=== PATIENT | male | born 1940 | race Caucasian/White ===

== ENCOUNTER 2020-05-21 08:56 | Emergency (ER) | payer MEDICARE, BC, SELFPAY ==
--- NOTE | 2020-05-21 09:07 | ED.SKABFB ---
HPI - Skin/Abscess/Foreign Bdy General Chief complaint: Skin/Abscess/Foreign Body Stated complaint: Sores on back Time Seen by Provider: 05/21/20 09:10 Source: patient and RN notes reviewed History of Present Illness HPI narrative: Patient is an 80-year-old male who presents the urgent care with complaints of a sore on the back . Patient states that it has been there for approximately 1 month and he has had one in the past in which he saw plastic surgeon for. Patient states that he feels that it is getting larger but he is unable to see the wound. States that it does bleed and drain at night. Denies of any fever, chills, nausea, vomiting. Patient states he is used cortisone cream to the area. No other acute complaints no acute distress noted. Patient aware of the plan of care. Some parts of this dictation were generated by voice recognition software and may contain typographical and/or grammatical inaccuracies. Related Data Home Medications Medication Instructions Recorded Confirmed alirocumab [Praluent Pen] mg SUBCUT 05/21/20 anastrozole mg 05/21/20 carvedilol 05/21/20 finasteride mg 05/21/20 icosapent ethyl [Vascepa] g PO 05/21/20 lisinopril 05/21/20 spironolactone 05/21/20 testosterone 05/21/20 Allergies Allergy/AdvReac Type Severity Reaction Status Date / Time erythromycin base Allergy Unknown Verified 02/25/17 08:35 lovastatin Allergy Unknown Verified 01/31/18 08:38 Aypsvop-Ite-Ism Reductase Allergy Unknown MUSCLE PAIN Verified 05/08/19 18:21 Inhibitor Review of Systems Review of Systems: Narrative: CONSTITUTIONAL: Denies fever, chills, or sweats. EYES: Denies visual changes, redness, or discharge. ENT: Denies rhinorrhea, congestion, sore throat, or otalgia. CARDIOVASCULAR: Denies chest pain, palpitations, or edema. RESPIRATORY: Denies cough or dyspnea. GASTROINTESTINAL: Denies abdominal pain, nausea, vomiting, or diarrhea. GENITOURINARY: Denies dysuria or hematuria. SKIN: Reports of a sore on the upper back MUSCULOSKELETAL: Denies back pain, joint pain, or myalgia. NEUROLOGIC: Denies headache, numbness, or weakness. All other systems reviewed are negative, except as documented in HPI. PMFSH Family History Family History (Updated 01/31/18 @ 08:41 by DOCTOR UNKNOWN) Father Patient's father is Mother Family history of Alzheimer's disease Social History Social History Smoking status: Never smoker Alcohol intake: current Comments At the time of my signature, I reviewed and agree with the nursing past medical, surgical, social, and family history. There is no relevant family history pertinent to the patient complaint. Exam Narrative: Exam Narrative: GENERAL: This is a well-nourished, well-developed patient, in no apparent distress. HEAD: normocephalic, atraumatic. EYES: PERRL. Sclera clear/white. Vision is grossly intact. EARS: External ears normal NOSE: External nose normal with no obvious nasal discharge, nares without redness, no rhinorrhea. THROAT: Mucous membranes moist NECK: Neck supple SKIN: 1 x 1 cm open stage I wound to the right upper back/right shoulder blade with scant yellow drainage and very mild surrounding erythema. Warm, intact with no suspicious lesions or rash, good texture and turgor. NEURO: awake, alert, and oriented to person, place and time. There were no obvious focal neurologic abnormalities. EXTREMITIES: No clubbing, cyanosis, or edema. Course Vital Signs Vital signs: Vital Signs Temperature 97.2 F L 05/21/20 09:09 Pulse Rate 65 05/21/20 09:09 Respiratory Rate 20 05/21/20 09:09 Blood Pressure 166/97 H 05/21/20 09:09 Pulse Oximetry 97 05/21/20 09:09 Temperature 97.2 F L 05/21/20 09:19 Pulse Rate 65 05/21/20 09:19 Respiratory Rate 20 05/21/20 09:19 Blood Pressure 166/97 H 05/21/20 09:19 Pulse Oximetry 97 05/21/20 09:19 Reviewed-patient is informed that they may have pre-hypertension or hy
[2020-05-21 09:09] VITALS: BP 166/97; PULSE 65; RESP 20; TEMP 36.2; O2SAT 97
[2020-05-21 09:19] VITALS: BP 166/97; PULSE 65; RESP 20; TEMP 36.2; O2SAT 97
== END 2020-05-21 09:32 | disposition home or self-care (01) ==
PROVIDERS: Emergency Provider Nurse Practitioner Family
DX: S21.201A Unspecified open wound of right back wall of thorax without penetration into thoracic cavity, initial encounter (principal); X58.XXXA Exposure to other specified factors, initial encounter; I10 Essential (primary) hypertension
CPT/HCPCS: 99213; G0463

== ENCOUNTER 2021-12-17 11:45 | Outpatient (CLI) | payer MEDICARE, BC, SELFPAY ==
[2021-12-17 12:25] LABS: Potassium 5.2 mmol/L (3.4-5.0)
== END 2021-12-17 11:46 | disposition home or self-care (01) ==
LOC: ANHLAB 11:49
PROVIDERS: Visit Provider Internal Medicine Cardiovascular Disease
DX: E87.5 Hyperkalemia (principal)
CPT/HCPCS: 36415; 84132

== ENCOUNTER 2022-06-05 17:08 | Emergency (ER) | payer MEDICARE, BC, SELFPAY ==
--- NOTE | ~2022-06-05 | XR_ITS ---
EXAMINATION: XR chest 2V Exam Date/Time: 06/05/2022 17:33 ANESTHESIOLOGY PHYSICIAN ASSISTANT HISTORY: COUGH, CONGESTION Comparison: None available. RESULT: Lines, tubes, and devices: Coronary artery calcification and/or stents. Lungs and pleura: Senescent change. Cardiomediastinal silhouette: Stable aortic ectasia. Other: No acute osseous or upper abdominal finding. IMPRESSION: No acute cardiopulmonary process. Reviewed, dictated and finalized at location K. THESIOLOGY PHYSICIAN ASSISTANT
--- NOTE | 2022-06-05 17:15 | ED.URI ---
HPI - URI/Sore Throat General Chief Complaint: Upper Respiratory Infection Stated Complaint: cold/flu Time Seen by Provider: 06/05/22 17:15 Source: patient and family Mode of arrival: ambulatory Limitations: no limitations History of Present Illness HPI Narrative: Mr. Vang is a 82-year-old male patient presenting to the clinic today with complaints of cold/flu symptoms. He reports he has had coughing and congestion for few days. He denies any known fever or chills. History of pneumonia in the past and his is concerned that he may have pneumonia MD elicited complaint: sore throat and nasal congestion Related Data Home Medications Medication Instructions Recorded Confirmed alirocumab 150 mg/mL subcutaneous 150 mg subcut DIRECTED 05/21/20 06/05/22 pen injector (Praluent Pen) anastrozole 1 mg tablet 1 mg PO DIRECTED 05/21/20 06/05/22 carvedilol 12.5 mg tablet 12.5 mg PO DAILY 05/21/20 06/05/22 finasteride 5 mg tablet 5 mg PO DAILY 05/21/20 06/05/22 icosapent ethyl 1 gram capsule 1 g PO DAILY 05/21/20 06/05/22 (Vascepa) lisinopril 20 mg tablet 20 mg PO DAILY 05/21/20 06/05/22 spironolactone 25 mg tablet 25 mg PO DAILY 05/21/20 06/05/22 famotidine 40 mg tablet 40 mg PO DAILY 06/05/22 06/05/22 quetiapine 50 mg tablet 50 mg PO DAILY 06/05/22 06/05/22 silodosin 8 mg capsule 8 mg PO DAILY 06/05/22 06/05/22 Allergies Allergy/AdvReac Type Severity Reaction Status Date / Time erythromycin base Allergy Unknown Rash Verified 06/05/22 17:31 lovastatin Allergy Unknown Muscle Verified 06/05/22 17:31 Spasms Ribajgs-NKQ-YpP Reductase Allergy Unknown MUSCLE PAIN Verified 05/08/19 18:21 Inhibitor [Wmqdvwe-Lkg-Tkz Reductase Inhibitor] Review of Systems Review of Systems: Pertinent positives per HPI. Patient denies any fever, chills, rash, headache, visual changes, dizziness, cough, shortness of breath, chest pain, palpitations, nausea, vomiting, diarrhea, constipation, abdominal pain, or any urinary issues. [facility] Family History Family History Father Patient's father is Mother Family history of Alzheimer's disease Social History Social History Smoking status: Never smoker Alcohol intake: current Comments At the time of my signature, I reviewed and agree with the nursing past medical, surgical, social, and family history. There is no relevant family history pertinent to the patient complaint. Exam Narrative: General: Well-developed, well nourished, in no apparent distress Head: Normocephalic, atraumatic Eyes: Pupils equally round and reactive to light bilaterally, EOM intact, sclera and conjunctive clear, no discharge, lids normal Ears: TMs intact and clear, ear canals clear, no drainage, grossly hearing normal. Nose: Nares patent, no discharge, no inflammation, no sinus tenderness. Mouth: Oral pharynx without lesions or masses, good dentition, MMM. Neck: Supple, trachea midline, no enlargement of anterior or posterior cervical nodes, no thyroid masses or goiter palpable. Cardio: Regular rate and rhythm, s1 and s2 normal, no murmur appreciated. Resp: Clear to auscultation bilaterally, no rhonchi, rales, wheezing or rubs Course Course Emergency Course: Portions of this record may have been created with voice recognition software. Level of Care: Express Care Visit Vital Signs Vital signs: Vital Signs Temperature 37.0 C 06/05/22 17:19 Pulse Rate 78 06/05/22 17:19 Respiratory Rate 16 06/05/22 17:19 Blood Pressure 120/81 06/05/22 17:19 Pulse Oximetry 96 06/05/22 17:19 Temperature 37.0 C 06/05/22 17:19 Pulse Rate 78 06/05/22 17:19 Respiratory Rate 16 06/05/22 17:19 Blood Pressure 120/81 06/05/22 17:19 Pulse Oximetry 96 06/05/22 17:19 Vital signs reviewed MDM - URI/Sore Throat MDM Narrative
[2022-06-05 17:19] VITALS: BP 120/81; PULSE 78; RESP 16; TEMP 37; O2SAT 96
== END 2022-06-05 18:01 | disposition home or self-care (01) ==
PROVIDERS: Emergency Provider Nurse Practitioner Family
DX: J10.1 Influenza due to other identified influenza virus with other respiratory manifestations (principal); Z20.822 Contact with and (suspected) exposure to COVID-19
CPT/HCPCS: 71046; 87426; 87804; 99213; C9803; G0463

== ENCOUNTER → 2022-09-07 10:27 | Outpatient (CLI) | payer MEDICARE, BC, SELFPAY ==
--- NOTE | ~2022-09-07 | MR_ITS ---
MRI of the right foot CLINICAL HISTORY: Chronic ulcer TECHNIQUE: Axial T1-weighted, T2 fat sat, and T1 fat-sat images, sagittal T1 weighted and STIR images , and coronal T1-weighted and T2 fat-sat images were performed. Following intravenous administration of 15 cc MultiHance gadolinium, T1-weighted fat-sat imaging was performed in the axial, coronal, and sagittal planes. FINDINGS: No evidence for fracture, suspicious bone marrow edema, or ostial myelitis. There are mild degenerative changes at the TMT joints, with focal areas of subchondral cystic change present. Visual ized joint spaces are preserved. Visualized collateral ligament appear intact. No significant joint e ffusion identified. No evidence for intermetatarsal bursitis or Chilel's neuroma. There is a soft tissue ulcer at the mago ntar aspect of the foot at the level of the second metatarsal head. No abscess evident. There is mild nonspecific edematous change of the intrinsic musculature of the foot. There is mild dorsal subcutan eous soft tissue edema. No abscess evident. There is enhancing soft tissue the plantar muscular foot about the second digit and second MTP joint, compatible soft tissue infection. IMPRESSION: No evidence for osteomyelitis or abscess. Soft tissue ulcer at the plantar aspect of the second metatarsal head region, with probable soft tiss ue infection involving the plantar soft tissues of the second digit and second MTP joint region. Minimal degenerative change at the TMT joints. Reviewed, dictated and finalized at [facility]. L ROOM ATTENDANT IMPRESSION: No evidence for osteomyelitis or abscess. Soft tissue ulcer at the plantar aspect of the second metatarsal head region, w ith probable soft tissue infection involving the plantar soft tissues of the se cond digit and second MTP joint region. Minimal degenerative change at the TMT joints.
== END ==
PROVIDERS: Visit Provider Podiatrist Foot & Ankle Surgery
DX: L97.512 Non-pressure chronic ulcer of other part of right foot with fat layer exposed (principal)
CPT/HCPCS: 73720; A9577

== ENCOUNTER 2022-09-25 19:49 | Emergency (ER) | payer MEDICARE, BC, SELFPAY ==
--- NOTE | ~2022-09-25 | XR_ITS ---
EXAMINATION: XR chest 2V Exam Date/Time: 09/25/2022 20:03 CDT HISTORY: CP, SOB Comparison: 06/05/2022. RESULT: Lines, tubes, and devices: Coronary stents/calcification. Vascular stent in the proximal abdominal a mica. Lungs and pleura: Senescent changes. Calcified left lower lung granulomas.. Cardiomediastinal silhouette: Stable. Other: No acute osseous or upper abdominal finding. IMPRESSION: No acute cardiopulmonary process. Reviewed, dictated and finalized at location K.
[2022-09-25 19:52] VITALS: BP 178/111; PULSE 71; RESP 16; TEMP 36.3; O2SAT 96
--- NOTE | 2022-09-25 19:52 | ECG_ITS ---
Measurements Intervals [place] Rate: 73 P: RI: 0 QRS: -57 QRSD: 101 T: 84 QT: 409 QTc: 452 Interpretive Statements ATRIAL FLUTTER/TACHYCARDIA WITH NORMAL VENTRICULAR RESPONSE LEFT AXIS DEVIATION VOLTAGE CRITERIA FOR LVH POOR R WAVE PROGRESSION, ANTERIOR LEADS INFERIOR INFARCT, AGE INDETERMINATE BORDERLINE ST-T WAVE ABNORMALITY- HIGH LATERAL LEADS ABNORMAL ECG BASELINE ARTIFACT- I, III, AVR, AVL NO PREVIOUS ECG AVAILABLE FOR COMPARISON Electronically Signed On 09-25-2022 21:47:03 CDT by Kaleb Virgen D.O.
[2022-09-25 20:11] LABS: Basophils Absolute Auto 0.1 K/mm3 (0.0-0.1); Basophils Percent Auto 1.6 % (0.2-1.2); Eosinophils Absolute Auto 0.2 K/mm3 (0-0.3); Eosinophils Percent Auto 2.6 % (0-4.4); Hematocrit 44.8 % (42.0-52.0); Hemoglobin 15.4 g/dL (14.0-18.0); Immature Granulocyte Absolute 0.03 K/mm3 (0.00-0.031); Immature Granulocyte Percent A 0.4 % (0-0.5); Lymphocytes Absolute Auto 1.71 K/mm3 (0.9-3.2); Lymphocytes Percent Auto 23.4 % (18.3-44.2); Mean Corpuscular HGB Conc 34.4 g/dl (32-36); Mean Corpuscular Volume 87.3 fl (80-100); Mean Platelet Volume 9.3 fl (7.4-10.4); Monocytes Absolute Auto 0.9 K/mm3 (0.1-0.6); Monocytes Percent Auto 11.9 % (2.6-8.5); Neutrophils Absolute Auto 4.4 K/mm3 (1.3-6.7); Neutrophils Percent Auto 60.1 % (45.5-73.1); Platelet Count Result 249 k/mm3 (150-375); Red Blood Count 5.13 M/mm3 (4.6-6.20); Red Cell Distribution Width 13.3 % (11.5-14.5); White Blood Count 7.3 K/mm3 (4.5-10.0)
[2022-09-25 20:23] LABS: Alanine Aminotransferase 26 U/L (6-50); Albumin Level 4.6 g/dL (3.5-5.1); Alkaline Phosphatase 73 U/L (38-126); Anion Gap 5 mmol/L (8-16); Aspartate Amino Transferase 31 U/L (17-59); Bilirubin,Total 0.7 mg/dL (0.2-1.3); Blood Urea Nitrogen 21 mg/dL (9-20); Calcium 9.8 mg/dL (8.4-10.2); Carbon Dioxide 28 mmol/L (22-30); Chloride 108 mmol/L (98-107); Estimated Glomerular Filt Rate > 60; Glucose 102 mg/dL (65-110); Lipase 49 U/L (23-300); Potassium 4.3 mmol/L (3.4-5.0); Sodium 141 mmol/L (137-145)
[2022-09-25 20:31] VITALS: O2SAT 98
[2022-09-25 20:46] VITALS: BP 174/104; PULSE 73; RESP 23; O2SAT 97
[2022-09-25 20:55] LABS: Troponin I < 0.012 ng/mL (0.000-0.034)
[2022-09-25 20:57] LABS: INR 1.3; Prothrombin Time 15.4 Seconds (11.1-14.7)
[2022-09-25] MEDS: FAMOTIDINE 20 MG/2 ML VIAL IV PUSH (22:37)
[2022-09-25] MEDS: MAG HYDROX/AL HYDROX/SIMETH 30 ML UDC PO (22:37)
[2022-09-25 23:04] LABS: Troponin I < 0.012 ng/mL (0.000-0.034)
--- NOTE | 2022-09-25 23:47 | ED.GENADULT ---
HPI - General Adult General Chief complaint: Chest Pain Stated complaint: chest pain Time Seen by Provider: 09/25/22 20:43 History of Present Illness HPI narrative: Is a 82-year-old male presenting to ED with chief complaint of high blood pressure. The patient noticed earlier today that his blood pressure was as high as 180/100. Throughout the day around 5:00 p.m. he started to have a stinging pain his lower chest after eating. It is nonradiating 4-5 intensity and comes and goes. Lasts about 10 minutes each time and resolves on its own. This happened 5 times since then. He has never been variance pain like this before there are no exacerbating alleviating factors. Is not associated with nausea vomiting diaphoresis or exertion, shortness of breath or fever and chills. Came to the hospital because after he had the chest pain they checked his blood pressure and then they brought him to the ED for evaluation. 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. Related Data Home Medications Medication Instructions Recorded Confirmed alirocumab 150 mg/mL subcutaneous 150 mg subcut DIRECTED 05/21/20 06/05/22 pen injector (Praluent Pen) anastrozole 1 mg tablet 1 mg PO DIRECTED 05/21/20 06/05/22 carvedilol 12.5 mg tablet 12.5 mg PO DAILY 05/21/20 06/05/22 finasteride 5 mg tablet 5 mg PO DAILY 05/21/20 06/05/22 icosapent ethyl 1 gram capsule 1 g PO DAILY 05/21/20 06/05/22 (Vascepa) lisinopril 20 mg tablet 20 mg PO DAILY 05/21/20 06/05/22 spironolactone 25 mg tablet 25 mg PO DAILY 05/21/20 06/05/22 famotidine 40 mg tablet 40 mg PO DAILY 06/05/22 06/05/22 quetiapine 50 mg tablet 50 mg PO DAILY 06/05/22 06/05/22 silodosin 8 mg capsule 8 mg PO DAILY 06/05/22 06/05/22 Allergies Allergy/AdvReac Type Severity Reaction Status Date / Time erythromycin base Allergy Unknown Rash Verified 09/25/22 19:56 lovastatin Allergy Unknown Muscle Verified 09/25/22 19:56 Spasms [place]-IVD-OsH Reductase Allergy Unknown MUSCLE PAIN Verified 09/25/22 19:56 Inhibitor [Hyaztnz-Kue-Oil Reductase Inhibitor] [facility], [facility] Family History Family History Father Patient's father is Mother Family history of Alzheimer's disease Social History Social History Smoking status: Never smoker Alcohol intake: current Exam Narrative: APPEARANCE: No apparent distress. Head: atraumatic. EYES: EOMI, NOSE: Atraumatic NECK: Trachea midline RESPIRATORY: No increased rate of breathing , clear to auscultation CARDIOVASCULAR: RRR, no peripheral edema, equal pulses in all extremities ABDOMINAL: Non-distended soft nontender no guarding or rebound MUSCULOSKELETAl: No obvious deformities NEURO: Alert. cranial nerves intact, Moving 4/4 extremities SKIN:: Warm, dry. Normal color PSYCHIATRIC: Normal affect Course Vital Signs Vital signs: Vital Signs Temperature 97.4 F L 09/25/22 19:52 Pulse Rate 71 09/25/22 19:52 Respiratory Rate 16 09/25/22 19:52 Blood Pressure 178/111 H 09/25/22 19:52 Pulse Oximetry 96 09/25/22 19:52 Oxygen Delivery Room Air 09/25/22 19:52 Temperature 97.4 F L 09/25/22 19:52 Pulse Rate 73 09/25/22 20:46 Respiratory Rate 23 H 09/25/22 20:46 Blood Pressure 174/104 H 09/25/22 20:46 Pulse Oximetry 97 09/25/22 20:46 Oxygen Delivery Room Air 09/25/22 19:52 Medical Decision Making [facility] Narrative Medical decision making narrative: -Presentation: this is a 82-year-old male presenting with intermittent stinging chest pain after eating and high blood pressure. His family is concerned about his heart. A chest pain workup has been ordered. Additionally they were concerned that his blood pressure is too high. Patient is currently asymptomatic. patient is on Eliquis. -DDX includes but is not limited to: Gastritis, GERD, ACS, pleurisy -[place]
== END 2022-09-26 00:56 | disposition home or self-care (01) ==
PROVIDERS: Emergency Provider Emergency Medicine
DX: R07.89 Other chest pain (principal); I10 Essential (primary) hypertension; Z79.811 Long term (current) use of aromatase inhibitors
CPT/HCPCS: 36415; 71046; 80053; 83690; 84484; 85025; 85610; 85730; 93005; 96374; 99284; A9270

== ENCOUNTER 2022-10-04 10:39 | Emergency (ER) | payer MEDICARE, BC, SELFPAY ==
--- NOTE | ~2022-10-04 | XR_ITS ---
EXAMINATION: XR shoulder LT min 2V DATE: 10/04/2022 11:00 INDICATION: Left shoulder injury. TECHNIQUE: 4 views of left shoulder were obtained. COMPARISON: None. FINDINGS: Bone alignment is normal. No fracture. There is moderate osteoarthritis of glenohumeral estee nt and acromioclavicular joint. IMPRESSION: 1. Polyarticular osteoarthritis. Reviewed, dictated and finalized at location A.
[2022-10-04 10:49] VITALS: BP 138/79; PULSE 62; RESP 16; TEMP 36; O2SAT 97
[2022-10-04 10:51] VITALS: BP 138/79; PULSE 62; RESP 16; TEMP 36; O2SAT 97
--- NOTE | 2022-10-04 11:20 | ED.UPPEXIN ---
HPI - Extremity Injury (Upper) General Chief Complaint: Extremity Injury, Upper Stated Complaint: lt shoulder injury Time Seen by Provider: 10/04/22 11:20 Source: patient, RN notes reviewed and old records reviewed Mode of arrival: ambulatory Limitations: no limitations History of Present Illness HPI narrative: 82-year-old male accompanied by who presents to Express Care with complaints of fall with injury to his left shoulder last night from standing position when he tripped at home and fell. Patient reports pain to his left shoulder with any movement. Patient reports that he has used ice to his shoulder and has applied Salonpas patch to his shoulder. Patient has no redness or bruising to his left shoulder is able to move arm on own power but with pain to shoulder. reports that patient did not hit his head and patient denies any dizziness prior to fall states just tripped. Patient is wearing a post op shoe to his right foot has been seeing wound care clinic in [place]. MD complaint: injury to: left and shoulder Onset (ago): day(s) ( last night) Severity scale (1-10): 8 Treatments prior to arrival: cold therapy and other (local pain relief patch) Related Data Home Medications Medication Instructions Recorded Confirmed alirocumab 150 mg/mL subcutaneous 150 mg subcut DIRECTED 05/21/20 10/04/22 pen injector (Praluent Pen) anastrozole 1 mg tablet 1 mg PO DIRECTED 05/21/20 10/04/22 carvedilol 12.5 mg tablet 12.5 mg PO DAILY 05/21/20 10/04/22 finasteride 5 mg tablet 5 mg PO DAILY 05/21/20 10/04/22 icosapent ethyl 1 gram capsule 1 g PO DAILY 05/21/20 10/04/22 (Vascepa) lisinopril 20 mg tablet 20 mg PO DAILY 05/21/20 10/04/22 spironolactone 25 mg tablet 25 mg PO DAILY 05/21/20 10/04/22 famotidine 40 mg tablet 40 mg PO DAILY 06/05/22 10/04/22 quetiapine 50 mg tablet 50 mg PO DAILY 06/05/22 10/04/22 silodosin 8 mg capsule 8 mg PO DAILY 06/05/22 10/04/22 Allergies Allergy/AdvReac Type Severity Reaction Status Date / Time erythromycin base Allergy Unknown Rash Verified 09/25/22 19:56 lovastatin Allergy Unknown Muscle Verified 10/04/22 10:49 Spasms Pcryzcq-BOR-FvG Reductase Allergy Unknown MUSCLE PAIN Verified 10/04/22 10:49 Inhibitor [Fmdjayv-Xdk-Srd Reductase Inhibitor] Review of Systems Review of Systems: CONSTITUTIONAL: Denies fever, chills, or sweats. EYES: Denies visual changes, redness, or discharge. ENT: Denies rhinorrhea, congestion, sore throat, or otalgia. CARDIOVASCULAR: Denies chest pain, palpitations, or edema. RESPIRATORY: Denies cough or dyspnea. GASTROINTESTINAL: Denies abdominal pain, nausea, vomiting, or diarrhea. GENITOURINARY: Denies dysuria or hematuria. SKIN: Denies rash or itching. MUSCULOSKELETAL: Denies back pain, positive for left shoulder joint pain, or myalgia. NEUROLOGIC: Denies headache, numbness, or weakness. PSYCHIATRIC: Denies anxiety or depression. All systems reviewed & are unremarkable except as noted in HPI and below PMFSH Past Medical History Medical History (Updated 10/05/22 @ 13:40 by Mattie White NP) Elevated cholesterol Hypertension Surgical History Surgical History (Updated 10/05/22 @ 13:35 by Mattie White NP) History of coronary artery stent placement Family History Family History Father Patient's father is Mother Family history of Alzheimer's disease Social History Social History Smoking status: Never smoker Alcohol intake: current Comments At time of signature, agree with nursing past medical, surgical, social and family history. There is no relevant family history pertinent to the presenting complaint Exam Narrative: GENERAL: Well-appearing, well-nourished, and in no acute distress. HEAD: Normocephalic, atraumatic. EYES: PERRLA and EOMI. ENT: Nares clear, no rhinorrhea
== END 2022-10-04 11:48 | disposition home or self-care (01) ==
PROVIDERS: Emergency Provider Registered Nurse
DX: M25.512 Pain in left shoulder (principal); I10 Essential (primary) hypertension; W01.0XXA Fall on same level from slipping, tripping and stumbling without subsequent striking against object, initial encounter; Y92.009 Unspecified place in unspecified non-institutional (private) residence as the place of occurrence of the external cause
CPT/HCPCS: 73030; 99213; G0463

== ENCOUNTER 2022-11-09 09:12 | Emergency (ER) | payer MEDICARE, BC, SELFPAY ==
--- NOTE | 2022-11-09 09:12 | ED.URI ---
HPI - URI/Sore Throat General Chief Complaint: Upper Respiratory Infection Stated Complaint: COLD SYMPTOMS Time Seen by Provider: 11/09/22 09:13 Source: patient and RN notes reviewed History of Present Illness HPI Narrative: Patient is an 82-year-old male who presents to Urgent Care with his spouse with complaints of cold-like symptoms since the weekend. Patient states that he has had a runny nose, mild cough and some congestion. Patient states he believes he is getting what his has. Patient has taken Tylenol [id number]. Denies any shortness of breath, chest discomfort, fever, nausea or vomiting. Denies any ill exposures. No other acute complaints. No acute distress noted. Patient and spouse aware of the plan of care. Some parts of this dictation were generated by voice recognition software and may contain typographical and/or grammatical inaccuracies. Related Data Home Medications Medication Instructions Recorded Confirmed alirocumab 150 mg/mL subcutaneous 150 mg subcut DIRECTED 05/21/20 11/09/22 pen injector (Praluent Pen) anastrozole 1 mg tablet 1 mg PO DIRECTED 05/21/20 11/09/22 carvedilol 12.5 mg tablet 12.5 mg PO DAILY 05/21/20 11/09/22 finasteride 5 mg tablet 5 mg PO DAILY 05/21/20 11/09/22 icosapent ethyl 1 gram capsule 1 g PO DAILY 05/21/20 11/09/22 (Vascepa) lisinopril 20 mg tablet 20 mg PO DAILY 05/21/20 11/09/22 spironolactone 25 mg tablet 25 mg PO DAILY 05/21/20 11/09/22 famotidine 40 mg tablet 40 mg PO DAILY 06/05/22 11/09/22 quetiapine 50 mg tablet 50 mg PO DAILY 06/05/22 11/09/22 silodosin 8 mg capsule 8 mg PO DAILY 06/05/22 11/09/22 apixaban 5 mg tablet (Eliquis) 5 mg PO DAILY 11/09/22 11/09/22 Allergies Allergy/AdvReac Type Severity Reaction Status Date / Time erythromycin base Allergy Unknown Rash Verified 11/09/22 09:23 lovastatin Allergy Unknown Muscle Verified 11/09/22 09:23 Spasms Isfsilc-YEL-YfQ Reductase Allergy Unknown MUSCLE PAIN Verified 11/09/22 09:23 Inhibitor [Oroxmyv-Rxu-Xsf Reductase Inhibitor] Review of Systems Review of Systems: CONSTITUTIONAL: Denies fever, chills, or sweats. EYES: Denies visual changes, redness, or discharge. ENT: Reports rhinorrhea and congestion CARDIOVASCULAR: Denies chest pain, palpitations, or edema. RESPIRATORY: Reports mild cough without dyspnea GASTROINTESTINAL: Denies abdominal pain, nausea, vomiting, or diarrhea. GENITOURINARY: Denies dysuria or hematuria. SKIN: Denies rash or itching. MUSCULOSKELETAL: Denies back pain, joint pain, or myalgia. NEUROLOGIC: Denies headache, numbness, or weakness. All other systems reviewed are negative, except as documented in HPI. [facility] Past Medical History Medical History (Updated 11/09/22 @ 09:47 by ALMAZ Ye) Elevated cholesterol Hypertension Surgical History Surgical History (Updated 10/05/22 @ 13:35 by Mattie White NP) History of coronary artery stent placement Family History Family History Father Patient's father is Mother Family history of Alzheimer's disease Social History Social History Smoking status: Never smoker Alcohol intake: current Comments At the time of my signature, I reviewed and agree with the nursing past medical, surgical, social, and family history. There is no relevant family history pertinent to the patient complaint. Exam Narrative: GENERAL: This is a well-nourished, well-developed patient, in no apparent distress. HEAD: normocephalic, atraumatic. EYES: PERRL. Sclera clear/white. Vision is grossly intact. EARS: External ears normal, auditory canals clear and without drainage, TMs normal without perforation. Hearing grossly intact. NOSE: External nose normal with no obvious nasal discharge, nares without redness, no rhinorrhea. THROAT: Mucous membranes calvin
[2022-11-09 09:24] VITALS: BP 127/68; PULSE 54; RESP 16; TEMP 36.3; O2SAT 100
[2022-11-09 09:27] VITALS: BP 127/68; PULSE 54; RESP 16; TEMP 36.3; O2SAT 100
== END 2022-11-09 09:52 | disposition home or self-care (01) ==
PROVIDERS: Emergency Provider Nurse Practitioner Family
DX: J00 Acute nasopharyngitis [common cold] (principal); E78.00 Pure hypercholesterolemia, unspecified; I10 Essential (primary) hypertension; Z95.5 Presence of coronary angioplasty implant and graft
CPT/HCPCS: 99213; G0463

== ENCOUNTER 2022-12-20 22:48 | Emergency (ER) | payer MEDICARE, BC, SELFPAY ==
--- NOTE | ~2022-12-20 | CT_ITS ---
EXAMINATION: CT brain wo con INDICATION: Altered mental status, combative COMPARISON: 12/13/2022 TECHNIQUE: Standard unenhanced head CT. The dose-length product (DLP) was 681.00 mGy-cm. The mA was a djusted according to patient size. Iterative reconstruction technique was employed. FINDINGS: There is a subacute subdural hematoma along the right aspect of the falx measuring approxim ately 8 mm in thickness. A new area of subacute subdural hematoma is seen anteriorly along the falx l eft of midline measuring approximately 5 mm in thickness. There is a subacute subdural hematoma along the right frontoparietal region as well as anterior to the frontal lobes bilaterally. There is a sma ll area of acute appearing lenticular extra-axial hemorrhage anterior to the right frontal lobe measu ring 6 mm in thickness. There appears to be a small area of subarachnoid hemorrhage in the right fron flako lobe. No evidence of mass lesion. No evidence of acute infarction. There is mild periventricular and subcortical hypodensity probably related to small vessel ischemic disease. There is mild prominen ce of the sulci and ventricles related to cerebral atrophy. Intracranial calcified cerebral atheroscl erosis is noted. There is no mass effect or midline shift. Changes in the globes are likely from ocul ar lens surgery. The visualized sinuses and mastoid air cells are well aerated. IMPRESSION: 1. Areas of evolving subdural hematoma as detailed above. Areas of subarachnoid hemorrhage seen in the right frontal lobe and possible epidural hematoma along the right frontal lobe. 2. Age related findings. Reviewed, dictated and finalized at location A. IMPRESSION: 1. Areas of evolving subdural hematoma as detailed above. Areas of subarachnoid hemorrhage seen in the right frontal lobe and possible ep idural hematoma along the right frontal lobe. 2. Age related findings.
--- NOTE | ~2022-12-20 | CT_ITS ---
EXAMINATION: CT brain wo con INDICATION: Intracranial hemorrhage. COMPARISON: 12/20/2022 TECHNIQUE: Standard unenhanced head CT. The dose-length product (DLP) was 681.00 mGy-cm. The mA was a djusted according to patient size. Iterative reconstruction technique was employed. FINDINGS: There is a stable subacute subdural hematoma along the right aspect of the falx measuring a pproximately 8 mm in thickness. A stable area of subacute subdural hematoma is seen anteriorly along the falx left of midline measuring approximately 5 mm in thickness. There is stable subacute subdural hematoma along the right frontoparietal region as well as anterior to the frontal lobes bilaterally. There is a stable small area of acute appearing lenticular extra-axial hemorrhage anterior to the ri ght frontal lobe measuring 6 mm in thickness. There is a small area of subarachnoid hemorrhage in the right frontal lobe. No evidence of mass lesion. No evidence of acute infarction. There is mild periv entricular and subcortical hypodensity probably related to small vessel ischemic disease. There is mi ld prominence of the sulci and ventricles related to cerebral atrophy. Intracranial calcified cerebra l atherosclerosis is noted. There is no mass effect or midline shift. Changes in the globes are likel y from ocular lens surgery. The visualized sinuses and mastoid air cells are well aerated. IMPRESSION: 1. Areas of intracranial hemorrhage as detailed above, stable since the examination seven hours prior . 2. Age related findings. Reviewed, dictated and finalized at location A. IMPRESSION: 1. Areas of intracranial hemorrhage as detailed above, stable since the examina tion seven hours prior. 2. Age related findings.
[2022-12-20 22:48] VITALS: BP 148/97; PULSE 85; RESP 18; TEMP 36.8; O2SAT 98
[2022-12-20 23:29] VITALS: PULSE 81
[2022-12-20 23:31] VITALS: BP 179/98; PULSE 74; RESP 20; TEMP 36.6; O2SAT 98
[2022-12-20 23:42] LABS: Appearance Urine Clear (Clear); Bilirubin Urine Negative (Negative); Blood Urine Negative (Negative); Color Urine Yellow (Yellow); Glucose Urine UA Negative (Negative); Ketones Urine Negative (Negative); Leukocyte Esterase Ur Negative LEU/UL (Negative); Nitrate Urine Negative (Negative); Protein Urine Negative (Negative); Specific Grav Ur 1.006 (1.001-1.035); pH Urine 5.5 (5.0-9.0)
[2022-12-20 23:46] LABS: Add Urine Microscopic? NO
[2022-12-21] VITALS (15 sets, daily range): BP systolic 97–167; BP diastolic 76–97; PULSE 65–78; RESP 14–23; O2SAT 95–99
--- NOTE | 2022-12-21 00:03 | ECG_ITS ---
Measurements Intervals [place] Rate: 70 P: 1 VA: 179 QRS: -45 QRSD: 103 T: 59 QT: 391 QTc: 424 Interpretive Statements SINUS RHYTHM LEFT ANTERIOR FASCICULAR BLOCK [QRS AXIS <= -45, QR IN I, RS IN II] MODERATE VOLTAGE CRITERIA FOR LVH, CONSIDER NORMAL VARIANT [MEETS CRITERIA IN ONE OF: R(aVL), S(V1), R(V5), R(V5/V6)+S(V1)] NONSPECIFIC T-WAVE ABNORMALITY COMPARED TO ECG 12/13/2022 11:49:48 NO SIGNIFICANT CHANGES Electronically Signed On 12-21-2022 14:50:59 CDT by Reva Moreno M.D.
[2022-12-21 00:14] LABS: Basophils Percent Auto 0.3 % (0.2-1.2); Eosinophils Absolute Auto 0.2 K/mm3 (0-0.3); Eosinophils Percent Auto 1.7 % (0-4.4); Hematocrit 40.8 % (42.0-52.0); Hemoglobin 13.9 g/dL (14.0-18.0); Immature Granulocyte Absolute 0.05 K/mm3 (0.00-0.031); Immature Granulocyte Percent A 0.6 % (0-0.5); Lymphocytes Absolute Auto 1.88 K/mm3 (0.9-3.2); Lymphocytes Percent Auto 20.8 % (18.3-44.2); Mean Corpuscular HGB Conc 34.1 g/dl (32-36); Mean Corpuscular Volume 85.2 fl (80-100); Mean Platelet Volume 9.7 fl (7.4-10.4); Monocytes Percent Auto 10.8 % (2.6-8.5); Neutrophils Percent Auto 65.8 % (45.5-73.1); Platelet Count Result 285 k/mm3 (150-375); Red Blood Count 4.79 M/mm3 (4.6-6.20); Red Cell Distribution Width 13.6 % (11.5-14.5)
[2022-12-21 00:22] LABS: Alanine Aminotransferase 42 U/L (6-50); Albumin Level 4.2 g/dL (3.5-5.1); Alkaline Phosphatase 58 U/L (38-126); Anion Gap 9 mmol/L (8-16); Aspartate Amino Transferase 43 U/L (17-59); Bilirubin,Total 0.7 mg/dL (0.2-1.3); Blood Urea Nitrogen 23 mg/dL (9-20); Calcium 9.3 mg/dL (8.4-10.2); Carbon Dioxide 21 mmol/L (22-30); Chloride 110 mmol/L (98-107); Estimated CRCL calculation 64 ml/min; Estimated Glomerular Filt Rate > 60; Glucose 116 mg/dL (65-110); Sodium 140 mmol/L (137-145)
--- NOTE | 2022-12-21 00:57 | ED.GENADULT ---
HPI - General Adult General Chief complaint: Unspecified Stated complaint: combative Time Seen by Provider: 12/20/22 23:06 History of Present Illness HPI narrative: Patient 82-year-old gentleman who presents the emergency department with chief complaint of aggressive behavior. Patient was recently admitted to a local nursing facility for rehab after he was found to have a traumatic subdural patient was removed from his [facility] and has been at the facility for several days the patient has apparently been having aggressive behavior at the evening patient is currently on 50 mg of Seroquel and half milligram of Ativan for agitation the facility reports no vomiting no fever no chills the patient has no complaints currently patient does have prior history of Lewy body dementia Related Data Home Medications Medication Instructions Recorded Confirmed alirocumab 150 mg/mL subcutaneous 150 mg subcut DIRECTED 05/21/20 11/09/22 pen injector (Praluent Pen) anastrozole 1 mg tablet 1 mg PO DIRECTED 05/21/20 11/09/22 carvedilol 12.5 mg tablet 12.5 mg PO DAILY 05/21/20 11/09/22 finasteride 5 mg tablet 5 mg PO DAILY 05/21/20 11/09/22 icosapent ethyl 1 gram capsule 1 g PO DAILY 05/21/20 11/09/22 (Vascepa) lisinopril 20 mg tablet 20 mg PO DAILY 05/21/20 11/09/22 spironolactone 25 mg tablet 25 mg PO DAILY 05/21/20 11/09/22 famotidine 40 mg tablet 40 mg PO DAILY 06/05/22 11/09/22 quetiapine 50 mg tablet 50 mg PO DAILY 06/05/22 11/09/22 silodosin 8 mg capsule 8 mg PO DAILY 06/05/22 11/09/22 apixaban 5 mg tablet (Eliquis) 5 mg PO DAILY 11/09/22 11/09/22 Allergies Allergy/AdvReac Type Severity Reaction Status Date / Time erythromycin base Allergy Unknown Rash Verified 12/20/22 22:56 lovastatin Allergy Unknown Muscle Verified 12/20/22 22:56 Spasms [id number] Reductase Allergy Unknown MUSCLE PAIN Verified 12/20/22 22:56 Inhibitor [Kwtjrfq-Nbz-Uci Reductase Inhibitor] Review of Systems Review of Systems: A 10 system review of systems was completed on the patient and is negative except for what is stated in the HPI. Nursing and ancillary documentation was reviewed. [facility] Past Medical History Medical History Elevated cholesterol Hypertension Surgical History Surgical History History of coronary artery stent placement Family History Family History Father Patient's father is Mother Family history of Alzheimer's disease Social History Social History Smoking status: Never smoker Alcohol intake: current Substance use type: does not use Exam Narrative: GENERAL: Well-appearing, well-nourished, and in no acute distress. HEAD: Normocephalic, atraumatic. EYES: PERRLA and EOMI. ENT: Nares clear, no rhinorrhea or epistaxis. Mucous membranes moist. NECK: Supple. CHEST: Clear to auscultation. No respiratory distress. HEART: Regular rate and rhythm. No murmur heard. Normal peripheral pulses. ABDOMEN: Soft, nontender, nondistended, normal active bowel sounds. EXTREMITIES: Normal range of motion. No edema. SKIN: Warm, dry, no rash. NEURO: No focal deficits. Alert and pleasantly confused. PSYCH: Normal mood and affect. Course Vital Signs Vital signs: Vital Signs Temperature 36.8 C 12/20/22 22:48 Pulse Rate 85 12/20/22 22:48 Respiratory Rate 18 12/20/22 22:48 Blood Pressure 148/97 H 12/20/22 22:48 Pulse Oximetry 98 12/20/22 22:48 Oxygen Delivery Room Air 12/20/22 22:48 Temperature 36.6 C 12/20/22 23:31 Pulse Rate 68 12/21/22 05:15 Respiratory Rate 22 H 12/21/22 05:15 Blood Pressure 167/84 H 12/21/22 05:15 Pulse Oximetry 97 12/21/22 05:15 Oxygen Delivery Room Air 12/20/22 22:48
[2022-12-21 02:11] LABS: Acetaminophen < 10 ug/mL (10-30); Ethanol < 10 mg/dL (<10); Salicylate < 1.0 mg/dL (2-20)
[2022-12-21 02:51] LABS: Amphetamine Screen Urine Negative (Negative); Barbiturate Screen Urine Negative (Negative); Benzodiazepines Screen Urine Negative (Negative); Cannabinoid Screen Urine Negative (Negative); Cocaine Screen Urine Negative (Negative); Methadone Screen Urine Negative (Negative); Opiate Screen Urine Negative (Negative); Phencyclidine Screen Urine Negative (Negative)
[2022-12-21] MEDS: QUEtiapine FUMARATE 25 MG TABLET 50 MG PO (04:57)
--- NOTE | 2022-12-21 07:26 | PC.NURSE ---
Report given to SHAHZAD Ballesteros at [facility].
== END 2022-12-21 07:30 ==
PROVIDERS: Emergency Provider Emergency Medicine; PCP Family Medicine
DX: G31.83 Neurocognitive disorder with Lewy bodies (principal); F02.811 Dementia in other diseases classified elsewhere, unspecified severity, with agitation; S06.5XAD Traumatic subdural hemorrhage with loss of consciousness status unknown, subsequent encounter; E78.00 Pure hypercholesterolemia, unspecified; I10 Essential (primary) hypertension; Z95.5 Presence of coronary angioplasty implant and graft; I44.4 Left anterior fascicular block; Z79.899 Other long term (current) drug therapy; X58.XXXD Exposure to other specified factors, subsequent encounter
CPT/HCPCS: 36415; 70450; 80053; 80307; 81003; 84443; 85025; 93005; 99284; A9270